=== PATIENT | female | born 1970 | race Caucasian/White ===

== ENCOUNTER 2018-07-16 05:50 | Day surgery (SDC) | payer OTHER, SELFPAY ==
[~2018-07-16] VITALS: Ht 167.6 cm; Wt 94.3 kg
[~2018-07-16 05:50] MED LIST: IBUP-1022 PO
[2018-07-16] MEDS ORDERED: dexameTHASONE 10 MG/1 ML VIAL PRES.FREE (J1100) ONE (05:51)
[2018-07-16] MEDS ORDERED: EPINEPHrine INJ 1 MG/ML 1ML AMP ONE (05:51)
[2018-07-16] MEDS ORDERED: ROPIvacaine 0.5% 30 ML INJECTION (J2795 PER 1MG) ONE (05:51)
[2018-07-16] MEDS ORDERED: LR 1,000 ML IV ONE (06:00)
[2018-07-16] MEDS ORDERED: LIDOCAINE 1% MDV 20ML VIAL SQ PRN (06:00)
[2018-07-16] MEDS ORDERED: MIDAZOLAM INJ 2 MG/2 ML VIAL (J2250) As Ordered ONE ×2 (06:45→07:55)
[2018-07-16] MEDS ORDERED: fentaNYL 100 MCG/2 ML INJECTION (J3010) As Ordered ONE (06:45)
[2018-07-16] MEDS ORDERED: BUPIVACAINE HCL 0.5% 10 ML VIAL As Ordered ONE (07:14)
[2018-07-16] MEDS ORDERED: dexameTHASONE 4 MG/ML 1ML VIAL (J1100) As Ordered ONE (07:55)
[2018-07-16] MEDS ORDERED: ROCURONIUM BROMIDE 50 MG/5 ML VIAL As Ordered ONE (07:55)
[2018-07-16] MEDS ORDERED: LIDOCAINE 2% INJ 100 MG/5 ML SDV (FOR ANES.) As Ordered ONE (07:55)
[2018-07-16] MEDS ORDERED: fentaNYL 250 MCG/5 ML INJECTION (J3010) As Ordered ONE (07:55)
[2018-07-16] MEDS ORDERED: ONDANSETRON 4MG/2ML VIAL (J2405) As Ordered ONE (07:55)
[2018-07-16] MEDS ORDERED: PROPOFOL 200 MG/20 ML VIAL As Ordered ONE (07:55)
[2018-07-16] MEDS ORDERED: PHENYLephrine HCL 500 MCG/5 ML (100MCG/ML) SYRINGE (J2370) As Ordered ONE (07:55)
[2018-07-16] MEDS ORDERED: ePHEDrine SULFATE 25 MG/5 ML(5MG/ML) SYRINGE As Ordered ONE (08:06)
[2018-07-16] MEDS ORDERED: MIDAZOLAM INJ 2 MG/2 ML VIAL (J2250) IV ONE (08:30)
[2018-07-16] MEDS ORDERED: fentaNYL 100 MCG/2 ML INJECTION (J3010) IV ONE (08:30)
[2018-07-16] MEDS ORDERED: SUGAMMADEX SODIUM 500 MG/5 ML VIAL (BRIDION) As Ordered ONE (08:40)
[2018-07-16] MEDS ORDERED: ONDANSETRON 4MG/2ML VIAL (J2405) IV PRN (10:45)
[2018-07-16] MEDS ORDERED: LR 1,000 ML IV SCH ×2 (10:45)
[2018-07-16] MEDS: NORCO, ANEXSIA 5/325MG TABLET (HYDROcodone/ACETAMINOPHEN) PO PRN ×2 (10:50→11:20)
[2018-07-16] MEDS: fentaNYL 100 MCG/2 ML INJECTION (J3010) IV PRN ×3 (10:50→11:00)
--- NOTE | 2018-07-16 11:23 | RO ---
DATE OF PROCEDURE: 07/16/2018 PREOPERATIVE DIAGNOSES: 1. 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 2. Left knee medial meniscus tear. 3. Left knee osteoarthritis. POSTOPERATIVE DIAGNOSES: 1. 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 2. Left knee medial meniscus tear. 3. Left knee osteoarthritis. PROCEDURES: 1. Left knee arthroscopic assisted anterior cruciate ligament reconstruction with allograft. 2. Left knee arthroscopic partial medial and lateral meniscectomy and chondroplasty. SURGEON: Dr. iNco Martinez. SNAP ATTACHER: Renan Cummins PA-C ANESTHESIA: General with preoperative nerve block. IV FLUIDS: Lactated Ringer's. ESTIMATED BLOOD LOSS: 5 mL. IMPLANTS: Arthrex 8 x 23 mm peak interference screw and Arthrex 10 x 28 mm peak interference screw and an Arthrex 4.75 mm Peak SwiveLock anchor. Closure - nylon. DESCRIPTION OF PROCEDURE: The patient was identified in preoperative holding area. The left leg marked by myself. She had an abductor canal block by anesthesia. She was brought the operating room, placed supine on a well-padded operating room (OR) table. General anesthesia was induced. Examination under anesthesia revealed range of motion from 0 to 135 degrees with pseudo laxity to varus and valgus stress. She has slight valgus alignment. She had grade 2B Karissa with a positive pivot shift. Negative posterior drawer. A well-padded tourniquet was applied to the left thigh. Right leg had a Venodyne boot for deep venous thrombosis (DVT) prophylaxis. She received appropriate IV antibiotics within 1 hour of incision. The left leg was then prepped and draped in normal sterile fashion with Chloraprep all the way from the tourniquet down to the toes. Prior to incision a time-out was performed per hospital protocol. Renan Cummins was present for the entire procedure and participated in all essential portions of the procedure. This included patient positioning, draping, holding the arthroscope, preparing the allograft on the back table, manipulating the leg, assisting with suture passage, assisting with placement of screws and performing the wound closure. The left knee was insufflated with lactated Ringer's and exsanguinated with an Esmarch bandage. Tourniquet inflated to 250 mmHg. Standard high anterior, anterolateral portal was made with 11-blade, 30 degrees arthroscope introduced in the joint. 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 The far proximal trochlea was a good condition. Distally within the trochlea, there was an area of grade 3 slightly medial. There were no loose bodies in the suprapatellar pouch or gutters. The medial compartment was entered where there was degenerative tearing of the anterior horn the medial meniscus but the body and posterior horn were intact. Overall grade 1 chondromalacia diffusely but with the knee hyper-flexed, there was an area of grade 2-3 chondromalacia that was posterior and far lateral. Next, the ACL was inspected. Fibers were present but it appeared lax and shredded. The leg was then brought to the eincec-ji-dsdo position where there was a macerated tear of the lateral meniscus. Grade 1-2 chondromalacia but not as bad as preoperative imaging suggested. On the back table, Pancho jules the Achilles allograft with a pre-cut dowel was then cut with a saw to about 21 mm in length. Rongeur was used to taper it to a bullet so that it easily passed through a 10, the tip through a 9. Two drill hole was made, #2 FiberWire passed through each drill hole. We then used #2 FiberWire to do a running locking whipstitch in a [place]ack[place] fashion. Excess tendon was trimmed and discarded. The graft was then secure on the back table with a moist sponge. The shaver was then used to perform a partial meniscectomy to the anterior horn of the medial meniscus. Shaver and meniscal punch was used to perform a partial lateral meniscectomy. All remaining lateral meniscus tissue was stable. Chondroplasty of the medial femoral condyle with the shaver. The shaver was then used to remove the remaining ACL fibers. Cautery was used to dre the tibial drill hole. A curette was used to dre the femoral tunnel. I created a medial portal that was far medial and I used the spinal needle to ensure that I had a good angle for drilling the femoral tunnel. The 8 mm [id number] guide was used to advance the beef pin out the lateral femoral condyle at the [place] attachment for a single bundle ACL reconstruction. A 10 mm low profile reamer was then used to drill a femoral tunnel just over 20 mm in depth. Shaver used to remove bony debris. The tibial drill guide was then used to drill a tibial tunnel sized to 10 as well. This was approximately 9 mm anterior to the intrameniscal ligament. The aperture was cleared out of soft tissue and two small bony fragments to ensure no cyclops lesion forming. A PDS passing suture was then placed through the beef pin, drawn out the lateral aspect of the thigh and protected for later passing. The graft was then passed into the joint using the PDS passing suture. IT required some effort to get it to turn the corner, but were able to dock the bone block and then a Nitanol wire was placed and a size 7 tap used to assist with screw passage. I should have mentioned that the knee was hyper-flexed when we drilled the femoral tunnel. With the knee again hyper-flexed, I placed an 8 x 23 mm peak interference screw over the Nitinol wire which had excellent fixation. Distal traction on the sutures show that the graft was secure. The knee was brought into full extension. There was no notch impingement. Next, the knee was brought into full extension on the OR table. Large bump placed behind the femoral condyles and Nitinol wire was passed between the graft and the tibial tunnel. A 10 x 28 mm peak interference screw was then placed over the nitinol wire as I applied distal traction to the tibial sutures and my first line supervisor applied a posterior drawer to the tibial tubercle. There was good but not great fixation on that screw. Therefore, I elected to back this up and 3/5 drill bit used to create a unicortical socket about 2 cm distal and the appropriate tap. I then placed the sutures through a 4.75 SwiveLock anchor which was placed into that drill hole which had great fixation. This backed up the tibial fixation. There was a grade 1 A Karissa, including before placing the SwiveLock anchor. The knee was then ranged from 0 to 120 degrees. The Karissa was repeated with no change. The knee was irrigated and drained. Portals closed with nylon suture. The tibial drill hole incision was closed with #2-0 Vicryl and nylon suture. Bulky sterile dressing was applied. Tourniquet was let down with excellent reperfusion. The patient was placed into a hinge knee brace locked in extension. All counts correct times two. Complications: None. She was transferred to postanesthesia care unit (PACU) stable. MINO
[2018-07-16 11:30] VITALS: BP 130/60
== END 2018-07-16 12:30 | disposition home or self-care (01) ==
LOC: M SDC 05:50
PROVIDERS: ATTEND Orthopaedic Surgery
DX: M23.52 Chronic instability of knee, left knee (principal); S83.242A Other tear of medial meniscus, current injury, left knee, initial encounter; S83.282A Other tear of lateral meniscus, current injury, left knee, initial encounter; M17.12 Unilateral primary osteoarthritis, left knee
CPT/HCPCS: 29880; 29888; 64447; 97116; C1713; C1762; J0690; J1100; J2250; J2370; J2405; J2795; J3010